=== PATIENT | female | born 1960 | race Caucasian/White ===

== ENCOUNTER 2023-10-23 18:51 | Emergency (ER) | payer OTHER ==
[~2023-10-23] VITALS: Ht 165.1 cm; Wt 81.6 kg
[2023-10-23 19:12] VITALS: BP 144/100; TEMP 98.2
[2023-10-23 20:36] VITALS: O2SAT 98
== END 2023-10-23 20:42 | disposition home or self-care (01) ==
LOC: ER 18:51
DX: R51.9 Headache, unspecified (principal)